=== PATIENT | male | born 1980 | race Caucasian/White ===

== ENCOUNTER 2021-03-30 02:08 | Emergency (ER) | payer OTHER ==
[~2021-03-30] VITALS: Ht 175.3 cm; Wt 81.8 kg
[2021-03-30 02:12] VITALS: BP 136/84
== END 2021-03-30 04:07 | disposition left against medical advice (07) ==
LOC: ER 02:08
DX: Z53.21 Procedure and treatment not carried out due to patient leaving prior to being seen by health care provider (principal)

== ENCOUNTER 2021-04-19 00:03 | Emergency (ER) | payer OTHER ==
[~2021-04-19] VITALS: Ht 170.2 cm; Wt 80.0 kg
[2021-04-19 00:14] VITALS: BP 129/80
== END 2021-04-19 01:54 | disposition left against medical advice (07) ==
LOC: ER 00:03
DX: Z53.21 Procedure and treatment not carried out due to patient leaving prior to being seen by health care provider (principal)

== ENCOUNTER 2021-04-19 10:34 | Emergency (ER) | payer MEDICAID, OTHER ==
[~2021-04-19] VITALS: Ht 165.1 cm; Wt 79.0 kg
[2021-04-19 10:40] VITALS: BP 153/88
== END 2021-04-19 11:52 | disposition home or self-care (01) ==
LOC: ER 10:34
DX: M25.562 Pain in left knee (principal); R03.0 Elevated blood-pressure reading, without diagnosis of hypertension
CPT/HCPCS: 99281